=== PATIENT | female | born 1960 | race Two or more races ===

== ENCOUNTER → 2024-10-03 | Outpatient (CLI) | payer MEDICAID, SELFPAY ==
--- NOTE | 2024-10-03 08:39 | XR_ITS ---
Examination: Shoulder,right, 3 views Technique: Shoulder AP internal rotation, AP external rotation, Y view shoulder, 3 views Exam date and time :October 03, 2024 0843 hours INDICATIONS: Patient fell last week with injury to the shoulder, shoulder pain. FINDINGS: Prominent osteopenia. No fracture or dislocation. Moderate narrowing glenohumeral joint. IMPRESSION: No fracture or shoulder dislocation
== END | disposition home or self-care (01) ==
PROVIDERS: PCP Physician Assistant
DX: S49.91XA Unspecified injury of right shoulder and upper arm, initial encounter (principal); W19.XXXA Unspecified fall, initial encounter
CPT/HCPCS: 73030

== ENCOUNTER 2024-12-18 14:11 | Emergency (ER) | payer MEDICAID, SELFPAY ==
[2024-12-18] VITALS (9 sets, daily range): BP systolic 119–145; BP diastolic 66–86; PULSE 71–84; RESP 17–29; TEMP 36.7–37.6; O2SAT 92–98; BMI 38.2
--- NOTE | 2024-12-18 14:35 | XR_ITS ---
Examination: PA lateral chest 2 views TECHNIQUE: Upright PA lateral chest 2 views Date and time: December 18, 2024, 1454 hours, comparison March 09, 2020 INDICATIONS: Chest pain short of breath today. FINDINGS: Normal heart size Bilateral subsegmental atelectasis No pneumonia or pulmonary edema IMPRESSION: No pneumonia or pulmonary edema
--- NOTE | 2024-12-18 14:35 | EKG_ITS ---
[facility] Test Date: 2024-12-18 Pat Name: WIL CALLAHAN Department: Room: - Gender: Female Senior User Experience Architect: : 1960 Requested By: Sameer Joseph (LISSETH) Order Number: [id number] Reading MD: Sameer Joseph (BRAZING FURNACE OPERATOR) Measurements Intervals [place] Rate: 79 P: 26 MO: 155 QRS: 2 QRSD: 85 T: 28 QT: 334 QTc: 385 Interpretive Statements SINUS RHYTHM Compared to ECG 03/09/2020 01:11:40 No significant changes /store/S0/[id number].pdf
--- NOTE | 2024-12-18 14:35 | XR_ITS ---
Examination: CT abdomen and pelvis without contrast. Coronal 3-D reconstructions. Sagittal 2-D reconstructions. Date and time of exam:December 18, 2024, 2:43 PM, comparison November 11, 2020 INDICATIONS: Generalized abdominal pain bilateral flank pain with nausea today CTDI: vol (mGy): 13.9 DLP: (mGycm): 833 Technique: Axial images of the abdomen have been obtained, 3 mm slice thickness Intravenous contrast material has not been administered. Low dose protocols were performed. One or more of the following dose reduction techniques were used; automated exposure control, adjustment of the mA and/or KV according to patient size, use of iterative reconstruction technique. Findings: No focal liver or splenic lesion Absent gallbladder No pancreatic or adrenal mass No renal or ureteral calculi No hydronephrosis No bowel obstruction Aorta normal size No pericecal inflammatory change No diverticulitis Bladder intact Normal appendix IMPRESSION: No renal or ureteral calculi, no hydronephrosis Normal appendix No bowel section diverticulitis or free air
--- NOTE | 2024-12-18 14:36 | EDRME_ITS ---
Rapid Medical Screening Exam [facility] Arrival date/time: 12/18/24 14:11 64-year-old female presents to the emergency department for complaints of back pain and generalized fatigue. Patient reports she had COVID last week Chief Complaint: Flu Like Symptoms Vital signs: Vital Signs Temperature 99.6 F 12/18/24 14:31 Pulse Rate 76 12/18/24 14:31 Respiratory Rate 20 12/18/24 14:31 Blood Pressure 145/86 H 12/18/24 14:31 Pulse Oximetry (%) 95 12/18/24 14:31 Oxygen Delivery Method Room Air 12/18/24 14:31
[2024-12-18 15:25] LABS: Basophils # (Auto) 0.0 Thou/mm3 (0.0-0.2); Basophils % (Auto) 1 % (0-2.5); Eosinophils # (Auto) 0.1 Thou/mm3 (0.0-0.5); Eosinophils % (Auto) 1 % (0-10); Hematocrit 41.4 % (36.0-46.0); Hemoglobin 13.7 g/dL (12.0-16.0); Immature Granulocytes Auto 0.02 Thou/mm3 (0.00-0.00); Lymphocytes # (Auto) 2.3 Thou/mm3 (1.0-4.8); Lymphocytes % (Auto) 36 % (10-50); Mean Corpuscular HGB Conc 33.1 g/dl (31.0-37.0); Mean Corpuscular Hemoglobin 28.9 pg (25.0-35.0); Mean Corpuscular Volume 87 fL (80-100); Monocytes # (Auto) 0.9 Thou/mm3 (0.0-0.8); Monocytes % (Auto) 14 % (0-12); Neutrophils # (Auto) 3.0 Thou/mm3 (1.8-7.7); Neutrophils % (Auto) 48 % (37-80); Nucleated Red Blood Cell # 0.00 Thou/mm3 (0.00-0.00); Nucleated Red Blood Cell % 0 /100 WBC (0); Platelet Count 300 Thou/mm3 (140-440); RDW Standard Deviation 45.1 fL (36.4-46.3); Red Blood Count 4.74 Miln/mm3 (4.00-5.20); White Blood Count 6.3 Thou/mm3 (3.6-11.0)
[2024-12-18 15:40] LABS: B-Type Natriuretic Peptide < 20 pg/mL (0-100)
[2024-12-18 15:44] LABS: Alanine Aminotransferase 32 U/L (10-49); Albumin, Serum 4.4 gm/dL (3.4-4.8); Albumin/Globulin Ratio 1.4 (1.2-2.2); Alkaline Phosphatase 61 U/L (46-116); Anion Gap 12 (7-16); Aspartate Amino Transferase 36 U/L (0-34); BUN/Creatinine Ratio 9 Ratio (12-20); Bilirubin,Total 0.3 mg/dL (0.3-1.2); Blood Urea Nitrogen 9 mg/dL (9-23); Calcium 9.4 mg/dL (8.3-10.6); Calcium (Corrected) 9.4 mg/dL (8.5-10.1); Carbon Dioxide 25.8 mMol/L (20.0-31.0); Chloride 101 mMol/L (98-107); Creatinine (Component) 1.0 mg/dL (0.6-1.3); Estimated Creatinine Clearance 65.7 mL/min (>60); Globulin 3.1 gm/dL (2.3-3.5); Glucose 118 mg/dL (74-106); Osmolality,Calculated 277 (275-295); Potassium 3.9 mMol/L (3.4-5.1); Sodium 139 mMol/L (136-145); Total Protein 7.5 gm/dL (5.7-8.2); Troponin I < 0.002 ng/mL (0.0-0.045); eGFR > 60 See Note
[2024-12-18 15:51] LABS: Collection Type, Urine Clean Catch
[2024-12-18 16:02] LABS: Amorphous Crystals,Urine Present (Absent); Bacteria,Urine 3+; Bilirubin,Urine 2+ (Negative); Blood,Urine Negative (Negative); Culture Indicated,Urine Contaminated; Glucose, Urine Negative (Negative); Granular Casts,Urine < 1 /hpf (0-1); Ketones,Urine Negative (Negative); Leukocyte Esterase,Urine Positive (Negative); Nitrite,Urine Positive (Negative); PH,Urine 6.0 (5.0-7.0); Protein,Urine 1+ (Neg - Trace); RBC,Urine 4 /hpf (0-3); Specific Gravity,Urine 1.021 (1.001-1.035); Squamous Epithelial Cell,Urine 13 /hpf (0-5); Urobilinogen,Urine 8.0 mg/dL (0.0-1.0); WBC,Urine 97 /hpf (0-5)
[2024-12-18 16:03] LABS: Clarity,Urine Hazy (Clear/Hazy); Color,Urine Drk-Orange (Lt Yel-Yel)
--- NOTE | 2024-12-18 17:01 | XR_ITS ---
Examination: CT abdomen with intravenous contrast CT pelvis with intravenous contrast 2-D coronal reconstructions 2-D sagittal reconstructions Date and time of exam:03/30/2024, 1908 hrs., Comparison December 18, [address] abdomen and pelvis without contrast. CTDI: vol (mGy) 12.2 DLP: (mGycm) 741 Technique: Multiple axial sections of the abdomen and pelvis have been obtained. 64 slice high-resolution scanner used. 3 mm axial sections have been obtained, post intravenous injection 100 cc Isovue-370 2-D sagittal, coronal reconstructions obtained. Low dose protocols were performed. One or more of the following dose reduction techniques were used; automated exposure control, adjustment of the mA and/or KV according to patient size, use of iterative reconstruction technique. Findings: No visualized liver or splenic lesion Absent gallbladder No pancreatic or adrenal mass Mild enhancement of the hoang of the right pelvicalyceal system and right ureter No ureteral calculi No bowel obstruction No pericecal inflammatory change No diverticulitis No pelvic mass No bladder mass or bladder calculi Impression: Mild enhancement hoang of the right pelvicalyceal system and right ureter, consider urinary tract infection, recent passage of a right ureteral calculus
--- NOTE | 2024-12-18 17:02 | EDNOTE_ITS ---
Upper Respiratory Inf. RME/HPI General Chief Complaint: Flu Like Symptoms Stated Complaint: BODYACHES, NAUSEA , ALOT OF SWEATING Time Seen by Provider: 12/18/24 15:59 Arrival date/time: 12/18/24 14:11 RME / HPI RME / HPI Narrative: 12/18/24 14:11 64-year-old female presents to the emergency department for complaints of back pain and generalized fatigue. Patient reports she had COVID last week DR. MARI MAIN ED EVALUATION 64 year old female with history of hypertension, diabetes, hyperlipidemia, DVT, anemia presents to the ED for evaluation of chills, body aches, and nausea x4 days. Daughter reports the patient was diagnosed with COVID last week and 3 days ago Monday had a telehealth visit with PCP regarding urinary symptoms who prescribed Bactrum and Pyridium for UTI. Daughter state the patient began the medications 2 days ago and no longer complains of urinary symptoms. However the chills body aches and nausea persist. Denies any fevers, chest pain, cough, abdominal pain, diarrhea, or constipation. Related Data Home Medications ?Medication ?Instructions ?Recorded ?Confirmed metformin 1,000 mg tablet 1,000 mg PO HS #0 tabs 11/1703/09/20 (Glucophage) paroxetine HCl 20 mg tablet (Paxil) 20 mg PO QAM #0 ta bs 11/17/16 03/09/20 atorvastatin 10 mg tablet 10 mg PO QPM 10/03/19 lisinopril 10 mg tablet 10 mg PO QDAY 02/28/2003/09 hydrocortisone 1 % topical cream 1 applic topical BID 03/09/20 03/09/20 Previous Rx's ?Medication ?Instructions ?Recorded hydrocodone 5 mg-acetaminophen 325 1 tab PO QID PRN pa in #20 tabs 03/12/20 mg tablet Allergies Allergy/AdvReac Type Severity Reaction Status Date / Time No Known Allergies Allergy Verified 11/10/20 20:08 Review of Systems Review of Systems Systems Reviewed: All systems reviewed, normal except as documented Past Medical History Past Medical History CARDIAC: Positive Hypertension, Hypotension and Varicose Veins RESPIRATORY: Positive Asthma and Tuberculosis GASTROINTESTINAL: Positive Gastroesophageal Reflux Disease REPRODUCTIVE: Positive Previous Pregnancies MUSCULOSKELETAL: Positive Musculoskeletal Disorders, Arthritis and Fractures ENDOCRINE: Positive Endocrine Disorders and Diabetes Mellitus Type 2 PSYCHO/SOCIAL: Positive Depression and Anxiety OTHER HISTORY: Positive Measles Surgical History SURGICAL: Positive Joint Replacement, Knee Sx (x2 knee replacement) and Tubal Ligation Social History SMOKING STATUS: Never smoker SUBSTANCE USE: does not use ED Exam Narrative Physical exam: Constitutional: Awake, alert, nontoxic, having chills during exam, overweight HEENT: NC, AT, EOMI Neck: Supple CV: RRR, no m/r/g Lungs: CTAB, no w/r/r, no respiratory distress. Abd: Soft, LLQ and suprapubic tenderness, no HSM noted to palpation Extremities: No deformities, no edema noted Neuro: AAOx3, CN 2-12 GIBL, no acute neuro deficit noted. Skin: Warm, dry, intact Course Course Course Narrative: 1800h: Patient signed out to Dr. Wu pending CT a/p, diagnosis possible UTI. CT was ordered due to pain in the LLQ in addition to the suprapubic region to rule out any additional GI causes such as diverticulitis. Quality Measures none Orders Category Date Time Status CT Screening NOW Care 12/18/24 17:01 Active EKG (ED ONLY) *Do not use* NOW Care 12/18/24 14:[address] abdomen pelvis w con Stat Exams 12/18/24 17:[address] abdomen pelvis wo con Stat Exams 12/18/24 14:35 Completed EKG (ED Only) Stat Exams 12/18/24 14:35 Draft XR chest 2V Stat Exams 12/18/24 14:35 Completed B-Type Natriuretic Peptide Stat Lab 12/18/24 15:05 Completed C-Reactive Protein Stat Lab 12/18/24 15:05 Completed CBC Stat Lab 12/18/24 15:05 Completed Comprehensive Metabolic Panel Stat Lab 12/18/24 15:05 Completed Procalcitonin Stat Lab 12/18/24 15:05 Completed Troponin I Stat Lab 12/18/24 15:05 Completed Urinalysis Stat Lab 12/18/24 17:01 Ordered Urinalysis, C/S if Indicated Stat Lab 12/18/24 15:22 Completed Ketorolac Inj [Toradol Inj] Med 12/18/24 17:02 Discontinued 30 mg IVP X1 ONE Ondansetron Inj [Zofran Inj] Med 12/18/24 17:02 Discontinued 4 mg IVP X1 ONE cefTRIAXone/D5w 1gm IV premix [Rocephin/D5w 1gm IV Med 12/18/24 18:05 Ordered premix] 1 gm in 50 ml IV X1 Vital Signs Vital signs: Vital Signs Temperature 99.6 F 12/18/24 14:31 Pulse Rate 76 12/18/24 14:31 Respiratory Rate 20 12/18/24 14:31 Blood Pressure 145/86 H 12/18/24 14:31 Pulse Oximetry (%) 95 12/18/24 14:31 Oxygen Delivery Method Room Air 12/18/24 14:31 Pulse ox is 95% on room air which is adequate. Upper Respiratory Infection Patient data External records reviewed:: [facility] previous records Clinical information provided by:: patient Social determinants that could affect healthcare access:: none Patient has the following chronic illnesses:: hypertension, diabetes, hyperlipidemia, DVT, anemia How is presenting disease/condition affected by chronic disease/condition?: exacerbated by Evaluation data The following diagnostics were reviewed and interpreted by me:: lab results, radiology exam(s) and EKG tracing(s) (EKG @ 14:38h NSR, rate 79, no STEMI. ) Lab and/or radiology exams considered but not ordered:: None Interpretation Summary: Ordering Physician: Opal YOON)Sameer NP Date of Service: 12/18/24 Procedure(s): CT abdomen pelvis wo con Accession Number(s): [id number] cc: Opal YOON)Sameer NP; Selvin Rosa MD~ Examination: CT abdomen and pelvis without contrast. Coronal 3-D reconstructions. Sagittal 2-D reconstructions. Date and time of exam:December 18, 2024, 2:43 PM, comparison November 11, 2020 INDICATIONS: Generalized abdominal pain bilateral flank pain with nausea today CTDI: vol (mGy): 13.9 DLP: (mGycm): 833 Technique: Axial images of the abdomen have been obtained, 3 mm slice thickness Intravenous contrast material has not been administered. Low dose protocols were performed. One or more of the following dose reduction techniques were used; automated exposure control, adjustment of the mA and/or KV according to patient size, use of iterative reconstruction technique. Findings: No focal liver or splenic lesion Absent gallbladder No pancreatic or adrenal mass No renal or ureteral calculi No hydronephrosis No bowel obstruction Aorta normal size No pericecal inflammatory change No diverticulitis Bladder intact Normal appendix IMPRESSION: No renal or ureteral calculi, no hydronephrosis Normal appendix No bowel section diverticulitis or free air Dictated By: Selvin Rosa MD Signed By: <Electronically signed by Selvin Rosa MD in OV> 12/18/24 1526 Ordering Physician: Opal YOON),Sameer MONTANEZ Date of Service: 12/18/24 Procedure(s): XR chest 2V Accession Number(s): [id number] cc: Opal YOON),Sameer MONTANEZ; Selvin Rosa MD~ Examination: PA lateral chest 2 views TECHNIQUE: Upright PA lateral chest 2 views Date and time: December 18, 2024, 1454 hours, comparison March 09, 2020 INDICATIONS: Chest pain short of breath today. FINDINGS: Normal heart size Bilateral subsegmental atelectasis No pneumonia or pulmonary edema IMPRESSION: No pneumonia or pulmonary edema Dictated By: Selvin Rosa MD Signed By: <Electronically signed by Selvin Rosa MD in [place]> 12/18/24 1513 Medications / Prescriptions Medications or Prescriptions considered but not ordered:: None Medication administrations:: Medication Administration History Ceftriaxone Sodium/Dextrose (Rocephin/D5w 1gm Iv Premix) 1 gm in 50 mls @ 100 mls/hr IV X1 ONE Stop: 12/18/24 18:34 Discontinued Medications Ketorolac Tromethamine (Ketorolac Inj 30 Mg/Ml Vial) 30 mg IVP X1 ONE Stop: 12/18/24 17:03 Last Admin: 12/18/24 17:41 Dose: 30 mg Documented By: NOLBERTO Ondansetron HCl (Ondansetron Inj 2 Mg/Ml Inj 2 Ml) 4 mg IVP X1 ONE; Protocol Stop: 12/18/24 17:03 Last Admin: 12/18/24 17:41 Dose: 4 mg Documented By: NOLBERTO See above Consultations Consultation(s) initiated? (list below): No Diagnosis Upper Respiratory Differential Diagnosis: upper respiratory infection, viral infection, bronchitis, influenza and other (UTI ) Most likely diagnosis given after review of the tests above:: UTI Admission Indicated Admission indicated?: not indicated Admission Request Was there a request for admission?: No Disposition Plan Disposition Plan: other (specify) (Signed out to Dr. Wu pending CT abdomen. ) Discharge Plan Prescriptions/Referrals Prescriptions/Med Rec: No Action paroxetine HCl [Paxil] 20 MG tablet 20 mg PO QAM Qty: 0 metformin [Glucophage] 1,000 MG tablet 1,000 mg PO HS Qty: 0 lisinopril 10 mg Tablet 10 mg PO QDAY atorvastatin 10 mg Tablet 10 mg PO QPM hydrocortisone 1 % cream 1 applic topical BID Patient Comments: APPLY CREAM EXTERNALLY TO AFFECTED AREA ON NOSE TWICE DAILY FOR 2 WEEKS THEN 2 WEEKS OFF. REPEAT hydrocodone-acetaminophen 5-325 mg tablet 1 tab PO QID MDD 4 PRN (Reason: pain) Qty: 20 0RF Referrals: Betty Barrett PA-C [Primary Care Provider, Family Practice] - In 1 week Problem List Clinical Impression: Urinary tract infection Patient/Caregiver Discharge Instructions Print Language: Micronesian
[2024-12-18] MEDS: ONDANSETRON INJ 2 MG/ML INJ 2 ML 4 MG IVP (17:41)
[2024-12-18] MEDS: KETOROLAC INJ 30 MG/ML VIAL IVP (17:41)
[2024-12-18 17:57] LABS: C-Reactive Protein 5.8 mg/dL (0.0-0.9); Procalcitonin 0.14 ng/ml (0.0-0.49)
[2024-12-18 18:14] LABS: Collection Type, Urine Clean Catch
--- NOTE | 2024-12-18 18:30 | EDNOTE_ITS ---
Emergency Room Addendum Addendum Narrative: 1800: Care assumed from Dr. Marin, the previous shift emergency physician. Past medical, surgical, social and family history reviewed. Vitals and home medications reviewed. Results and treatment plan discussed. I will assume the care of the patient at this time and will follow the patient. Please refer to the emergency department record for history and examination from initial visit. The following addendum documentation note is intended to reflect any pending information, findings, or radiology results not included in the patient?s initial chart. Patient had 2 urine samples obtained today and both were contaminated. I asked the nurse to obtain a sample via catheter so a urine culture could be sent. Patient has remained stable throughout ED course and can be discharged home. I will send a prescription for antibiotics to the patient's pharmacy. RADIOLOGY RESULTS: [facility] Report Signed Patient: WIL CALLAHAN. Record#: [id number] Birthdate: 1960 Age/Sex: 64 / F Location: [facility] Attending Dr: Ordering Physician: Nancy Marin MD Date of Service: 12/18/24 Procedure(s): CT abdomen pelvis w con Accession Number(s): [id number] cc: Selvin Rosa MD; Nancy Marin MD; Betty Barrett PA-C~ Examination: CT abdomen with intravenous contrast CT pelvis with intravenous contrast 2-D coronal reconstructions 2-D sagittal reconstructions Date and time of exam:03/30/2024, 1908 hrs., Comparison December 18, [address] abdomen and pelvis without contrast. CTDI: vol (mGy) 12.2 DLP: (mGycm) 741 Technique: Multiple axial sections of the abdomen and pelvis have been obtained. 64 slice high-resolution scanner used. 3 mm axial sections have been obtained, post intravenous injection 100 cc Isovue-370 2-D sagittal, coronal reconstructions obtained. Low dose protocols were performed. One or more of the following dose reduction techniques were used; automated exposure control, adjustment of the mA and/or KV according to patient size, use of iterative reconstruction technique. Findings: No visualized liver or splenic lesion Absent gallbladder No pancreatic or adrenal mass Mild enhancement of the hoang of the right pelvicalyceal system and right ureter No ureteral calculi No bowel obstruction No pericecal inflammatory change No diverticulitis No pelvic mass No bladder mass or bladder calculi Impression: Mild enhancement hoang of the right pelvicalyceal system and right ureter, consider urinary tract infection, recent passage of a right ureteral calculus Dictated By: Selvin Rosa MD Signed By: <Electronically signed by Selvin Rosa MD in [place]> 12/18/245
[2024-12-18 18:42] LABS: Bacteria,Urine 1+; Bilirubin,Urine 2+ (Negative); Blood,Urine Negative (Negative); Clarity,Urine Turbid (Clear/Hazy); Color,Urine Drk-Orange (Lt Yel-Yel); Glucose, Urine Negative (Negative); Ketones,Urine Negative (Negative); Leukocyte Esterase,Urine Positive (Negative); Nitrite,Urine Positive (Negative); PH,Urine 6.5 (5.0-7.0); Protein,Urine Trace (Neg - Trace); RBC,Urine 5 /hpf (0-3); Specific Gravity,Urine 1.018 (1.001-1.035); Squamous Epithelial Cell,Urine 22 /hpf (0-5); Urobilinogen,Urine 8.0 mg/dL (0.0-1.0); WBC,Urine 20 /hpf (0-5)
[2024-12-18] MEDS: cefTRIAXone/D5w 1gm IV premix 1 GM/50 ML BAG IV (18:43)
--- NOTE | 2024-12-18 19:28 | PC.NURSE ---
pt taken to ct by breed to wean production technician.
== END 2024-12-18 22:10 | disposition home or self-care (01) ==
PROVIDERS: Family Medicine; Nurse Practitioner Primary Care; Emergency Provider Emergency Medicine; PCP Physician Assistant
DX: N39.0 Urinary tract infection, site not specified (principal); I10 Essential (primary) hypertension; E11.9 Type 2 diabetes mellitus without complications; E78.5 Hyperlipidemia, unspecified; D64.9 Anemia, unspecified; Z86.16 Personal history of COVID-19; Z87.442 Personal history of urinary calculi; Z86.718 Personal history of other venous thrombosis and embolism; Z96.653 Presence of artificial knee joint, bilateral
CPT/HCPCS: 36415; 71046; 74176; 74177; 80053; 81001; 83880; 84145; 84484; 85025; 86140; 87086; 93005; 96365; 96375; 99284; A4649; J0696; J1885; J2405; Q9967